=== PATIENT | male | born 1970 | race Caucasian/White ===

== ENCOUNTER 2018-10-26 07:37 | Emergency (ER) | payer OTHER ==
[2018-10-26 07:52] VITALS: BP 131/62; PULSE 79; TEMP 98; BMI 27.8
[2018-10-26] MEDS ORDERED: KETOROLAC TROMETHAMINE 60 MG/2 ML VIAL IM ONE (08:24)
[2018-10-26] MEDS ORDERED: CYCLOBENZAPRINE HCL 10 MG TABLET (FP) PO ONE (08:24)
[2018-10-26] MEDS ORDERED: CYCLOBENZAPRINE HCL 10 MG TABLET (FP) ONE (08:27)
[2018-10-26] MEDS ORDERED: KETOROLAC TROMETHAMINE 60 MG/2 ML VIAL ONE (08:27)
--- NOTE | 2018-10-26 08:29 | PDOC ---
History of Present Illness - General Chief Complaint: Back Pain Stated Complaint: LOW BACK PAIN Time Seen by Provider: 10/26/18 08:19 History Source: Patient Exam Limitations: Clinical Condition - History of Present Illness Initial Comments: 10/26/18 08:24 Patient with no significant past medical history present with complaint of over 1 week history of right lower back pain which comes on when getting up from sitting position and worse with bending waist. Patient reported doing a lot of heavy lifting at work but denies any back injury or trauma. Patient did not take anything for pain. Denies saddle and paresthesia, urinary or bowel incontinence. Denies any other symptoms Timing/Duration: 1 week Past History - Past Medical History Allergies/Adverse Reactions: Allergies Allergy/AdvReac Type Severity Reaction Status Date / Time No Known Allergies Allergy Verified 10/26/18 07:47 Home Medications: Ambulatory Orders Methocarbamol [Robaxin -] 500 mg PO BID #14 tablet 10/26/18 Naproxen 500 mg PO BID PRN #20 tablet 10/26/18 COPD: No - Immunization History Immunization Up to Date: Yes - Suicide/Smoking/Psychosocial Hx Smoking History: Never smoked Review of Systems - Review of Systems Able to Perform ROS?: Yes Is the patient limited [place]ish proficient: No Constitutional: No: Weakness HEENTM: No: Symptoms Reported Respiratory: No: Symptoms reported Cardiac (ROS): No: Symptoms Reported ABD/GI: No: Symptoms Reported, Nausea, Vomiting : No: Burning, Discharge, Frequency, Flank Pain, Incontinence, Urgency, Testicular Mass, Testicular Swelling, Testicular Pain Musculoskeletal: Yes: See HPI, Back Pain (right side), Muscle Pain (right side) . No: Muscle Weakness, Joint Stiffness Neurological: No: Numbness, Paresthesia, Tingling All Other Systems: Reviewed and Negative *Physical Exam - Vital Signs Last Vital Signs Temp Pulse Resp BP Pulse Ox 98.0 F 79 18 131/62 98 10/26/18 07:47 10/26/18 07:47 10/26/18 07:47 10/26/18 07:47 10/26/18 07:47 - Physical Exam Comments: 10/26/18 08:26 GENERAL: Well developed, well nourished. Awake and alert. No acute distress. CARDIOVASCULAR: Regular rate and rhythm. No murmurs, rubs, or gallops. PULMONARY: No evidence of respiratory distress. Lungs clear to auscultation bilaterally. No wheezing, rales or rhonchi. ABDOMINAL: Soft. Non-tender. Non-distended. No rebound or guarding. No organomegaly. Normoactive bowel sounds MUSCULOSKELETAL : mild tenderness over posterior paravertebral muscle of the lower lumbar spine of L4-L5. Free range of motion of hip. No bony deformities SKIN: Warm and dry. Normal capillary refill. No rashes. No jaundice. NEUROLOGICAL: Alert, awake, appropriate. No motor deficits in the lower extremities. Negative straight leg test of bilateral lower extremity. Gait is normal without ataxia. PSYCHIATRIC: Cooperative. Good eye contact. Appropriate mood and affect. General Appearance: Yes: Nourished, Appropriately Dressed. No: Apparent Distress Moderate Sedation - Procedure Monitoring Vital Signs: Procedure Monitoring Vital Signs Temperature 98.0 F 10/26/18 07:47 Pulse Rate 79 10/26/18 07:47 Respiratory Rate 18 10/26/18 07:47 Blood Pressure 131/62 10/26/18 07:47 O2 Sat by Pulse Oximetry (%) 98 10/26/18 07:47 Medical Decision Making - Medical Decision Making 10/26/18 08:28 Patient with no significant past medical history presented with complaint of over 1 week history of right lower back pain worsen with movement and getting up from sitting position without trauma or injury. Exam significant for mild tenderness to paravertebral muscle of lumbar spine consistent with muscle pains. Symptoms likely muscular skeletal pain and back spasm. Toradol 60 mg IM and cyclobenzaprine 10 mg by mouth given for back pain and spasm. Patient is stable for discharge on naproxen and Robaxin as needed for back pain with orthopedist follow-up as needed. *DC/Admit/Observation/Transfer Diagnosis at time of Disposition: Back muscle spasm Lumbago without sciatica Qualifiers: Chronicity: acute Back pain laterality: right Qualified Code(s): M54.5 - Low back pain - Discharge Dispostion Disposition: HOME Condition at time of disposition: Stable Decision to Admit order: No - Prescriptions Prescriptions: Methocarbamol [Robaxin -] 500 mg PO BID #14 tablet Naproxen 500 mg PO BID PRN #20 tablet PRN Reason: Back Pain - Referrals Referrals: Kalin Rebollar DO [Staff Physician] - - Patient Instructions Printed Discharge Instructions: DI for Low Back Pain, Exercise May Reduce Risk of Low Back Pain Additional Instructions: Your symptoms is likely from back spasm. Take medication as prescribed. Apply heat to lower back 2-3 times a day for 5-10 minutes as needed for pain. Follow- up referred to orthopedics if symptoms does not improve in 4 days - Post Discharge Activity
== END 2018-10-26 08:32 | disposition home or self-care (01) ==
LOC: JER 07:37 → JERFT 07:37
PROC: 3E0233Z Introduction of Anti-inflammatory into Muscle, Percutaneous Approach (ICD-10-PCS; principal; 2018-10-26)
DX: M62.830 Muscle spasm of back (principal)
CPT/HCPCS: 99281-25

== ENCOUNTER 2021-01-13 03:24 | Emergency (ER) | payer OTHER ==
[2021-01-13 03:49] VITALS: BP 119/81; PULSE 87; TEMP 98.6; BMI 25.7
[2021-01-13 05:10] LABS: URINE APPEARANCE CLEAR; URINE BILIRUBIN NEGATIVE (NEGATIVE); URINE COLOR YELLOW; URINE GLUCOSE (UA) NEGATIVE (NEGATIVE); URINE KETONE NEGATIVE (NEGATIVE); URINE LEUK ESTERASE NEGATIVE (NEGATIVE); URINE NITRITE NEGATIVE (NEGATIVE); URINE PROTEIN NEGATIVE (NEGATIVE); URINE UROBILINOGEN 0.2 mg/dL (0.2-1.0)
[2021-01-13] MEDS ORDERED: DEXAMETHASONE 4 MG TABLET (FP) PO ONE (05:50)
[2021-01-13] MEDS ORDERED: KETOROLAC TROMETHAMINE 30 MG/1 ML VIAL IM ONE (05:51)
[2021-01-13] MEDS ORDERED: KETOROLAC TROMETHAMINE 30 MG/1 ML VIAL ONE ×2 (05:55→06:02)
[2021-01-13] MEDS ORDERED: DEXAMETHASONE SOD PHOSPHATE 10 MG/1 ML VIAL ONE (05:55)
[2021-01-13] MEDS ORDERED: DEXAMETHASONE 4 MG TABLET (FP) ONE (06:02)
== END 2021-01-13 06:07 | disposition home or self-care (01) ==
LOC: JER 03:24
PROC: 3E0233Z Introduction of Anti-inflammatory into Muscle, Percutaneous Approach (ICD-10-PCS; principal; 2021-01-13)
DX: M54.31 Sciatica, right side (principal); M51.36 Other intervertebral disc degeneration, lumbar region
CPT/HCPCS: 72131-TC; 74176-TC; 81003; 99284-25

== ENCOUNTER 2022-01-25 17:56 | Emergency (ER) | payer OTHER ==
[2022-01-25 18:09] VITALS: BP 113/74; PULSE 64; TEMP 98.6; BMI 26.8
[2022-01-25] MEDS ORDERED: TETRACAINE 0.5% HCL 0.6ML DROPPER.BOTTLE OS ONE (20:03)
[2022-01-25] MEDS ORDERED: FLUORESCEIN NA 1 EA STRIP OS ONE (20:03)
[2022-01-25] MEDS ORDERED: FLUORESCEIN NA 1 EA STRIP ONE (20:05)
[2022-01-25] MEDS ORDERED: TETRACAINE 0.5% OPHTH SOLN 2 ML BOTTLE ONE (20:05)
== END 2022-01-25 21:33 | disposition home or self-care (01) ==
LOC: JERFT 17:56
DX: S05.02XA Injury of conjunctiva and corneal abrasion without foreign body, left eye, initial encounter (principal); W45.8XXA Other foreign body or object entering through skin, initial encounter
CPT/HCPCS: 99283-25

== ENCOUNTER 2022-09-21 09:54 | Emergency (ER) | payer OTHER ==
[2022-09-21 09:59] VITALS: BP 130/87; PULSE 80; RESP 20; TEMP 98.1; BMI 27.6
[2022-09-21] MEDS ORDERED: ACETAMINOPHEN 500 MG TABLET (FP) PO ONE (10:42)
[2022-09-21] MEDS ORDERED: KETOROLAC TROMETHAMINE 15 MG/ML VIAL IM ONE (10:42)
[2022-09-21] MEDS ORDERED: LIDOCAINE 5% TOPICAL PATCH TP ONE (10:42)
[2022-09-21] MEDS ORDERED: KETOROLAC TROMETHAMINE 15 MG/ML VIAL ONE (11:42)
[2022-09-21] MEDS ORDERED: LIDOCAINE 5% TOPICAL PATCH ONE (11:42)
[2022-09-21] MEDS ORDERED: ACETAMINOPHEN 500 MG TABLET (FP) ONE (11:42)
[2022-09-21] MEDS ORDERED: LIDOCAINE PATCH REMOVAL MC ONE (22:00)
== END 2022-09-21 12:19 | disposition home or self-care (01) ==
LOC: JERFT 09:54
DX: M54.50 Low back pain, unspecified (principal)
CPT/HCPCS: 99283-25

== ENCOUNTER 2023-07-19 09:24 | Emergency (ER) | payer OTHER ==
[2023-07-19 09:37] VITALS: BP 129/85; PULSE 68; RESP 20; TEMP 98; BMI 27.7
== END 2023-07-19 11:15 | disposition home or self-care (01) ==
LOC: JERFT 09:24
DX: M25.521 Pain in right elbow (principal)
CPT/HCPCS: 73070-TC-RT-FY; 99283-25

== ENCOUNTER 2024-05-21 09:04 | Emergency (ER) | payer OTHER ==
[2024-05-21 10:01] VITALS: BP 128/87; PULSE 73; RESP 16; TEMP 98.4; BMI 26.9
[2024-05-21] MEDS ORDERED: IBUPROFEN 400 MG TABLET (FP) PO ONE (10:29)
[2024-05-21] MEDS: IBUPROFEN 400 MG TABLET (FP) PO ONE (10:31)
== END 2024-05-21 12:05 | disposition home or self-care (01) ==
LOC: JERFT 09:04
DX: M25.561 Pain in right knee (principal); M71.21 Synovial cyst of popliteal space [Baker], right knee; I83.93 Asymptomatic varicose veins of bilateral lower extremities
CPT/HCPCS: 73562-TC-RT-FY; 93971-TC; 99284-25